=== PATIENT | female | born 1995 | race Caucasian/White ===

== ENCOUNTER 2022-12-03 10:40 | Emergency (ER) | payer OTHER, SELFPAY ==
[2022-12-03 10:48] VITALS: BP 128/83; PULSE 88; RESP 18; TEMP 36.8; O2SAT 97
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
[2022-12-03] MEDS: Ondansetron O.D.T. 4 MG TABEF PO (11:59)
== END 2022-12-03 12:02 | disposition home or self-care (01) ==
PROVIDERS: Emergency Provider Emergency Medicine
DX: S09.90XA Unspecified injury of head, initial encounter (principal); V89.2XXA Person injured in unspecified motor-vehicle accident, traffic, initial encounter; R11.0 Nausea; R51.9 Headache, unspecified
CPT/HCPCS: 99283